=== PATIENT | female | born 1995 | race Two or more races ===

== ENCOUNTER 2017-08-20 19:14 | Emergency (ER) | payer BC ==
[2017-08-20 20:18] VITALS: TEMP 98.4; BMI 20.7
--- NOTE | 2017-08-20 20:38 | PDOC ---
History of Present Illness - General History Source: Patient Exam Limitations: No Limitations - History of Present Illness Initial Comments: 08/20/17 22:33 The patient is a 22 year old female, reports 4 weeks of , with no significant PMH who presents to the emergency department with vaginal bleeding today. The patient states the vaginal bleeding looked like the first day of her menstrual period. She states her LMP was on 07/16/17. The patient denies any history of STDs. The patient's blood work today showed a blood type of O positive and a Beta HCG of 169. The patient denies chest pain, shortness of breath, headache and dizziness. Denies fever, chills, nausea, vomit, diarrhea and constipation. Denies dysuria, frequency, urgency and hematuria. Allergies: NKA Past surgical history: None reported. Social history: No reported alcohol, cigarette or drug use. <Jessica Woodruff - Last Filed: 08/20/17 22:41> <Estefany Patterson - Last Filed: 08/21/17 03:12> - General Chief Complaint: Vaginal Bleeding Stated Complaint: VAGINAL BLEEDING/4 WKS Time Seen by Provider: 08/20/17 20:37 Past History <Jessica Woodruff - Last Filed: 08/20/17 22:41> - Past Medical History COPD: No Other medical history: Pt denies - Suicide/Smoking/Psychosocial Hx Smoking History: Never smoked Have you smoked in the past 12 months: No Information on smoking cessation initiated: No Hx Alcohol Use: No Drug/Substance Use Hx: No Substance Use Type: None <Estefany Patterson - Last Filed: 08/21/17 03:12> - Past Medical History Allergies/Adverse Reactions: Allergies Allergy/AdvReac Type Severity Reaction Status Date / Time No Known Allergies Allergy Verified 08/20/17 20:14 Review of Systems - Review of Systems Able to Perform ROS?: Yes Comments:: 08/20/17 22:25 GENERAL/CONSTITUTIONAL: No fever or chills. No weakness. HEAD, EYES, EARS, NOSE AND THROAT: No change in vision. No ear pain or discharge. No sore throat. CARDIOVASCULAR: No chest pain or shortness of breath. RESPIRATORY: No cough, wheezing, or hemoptysis. GASTROINTESTINAL: No nausea, vomiting, diarrhea or constipation. GENITOURINARY: (+) Vaginal . No dysuria, frequency, or change in urination. MUSCULOSKELETAL: No joint or muscle swelling or pain. No neck or back pain. SKIN: No rash NEUROLOGIC: No headache, vertigo, loss of consciousness, or change in strength/ sensation. ENDOCRINE: No increased thirst. No abnormal weight change. HEMATOLOGIC/LYMPHATIC: No anemia, easy bleeding, or history of blood clots. ALLERGIC/IMMUNOLOGIC: No hives or skin allergy. <Jessica Woodruff - Last Filed: 08/20/17 22:41> *Physical Exam - Vital Signs Last Vital Signs Temp Pulse Resp BP Pulse Ox 98.4 F 76 18 107/61 98 08/20/17 20:15 08/20/17 20:15 08/20/17 20:15 08/20/17 20:15 08/20/17 20:15 - Physical Exam Comments: 08/20/17 22:24 GENERAL: Awake, alert, and fully oriented, in no acute distress HEAD: No signs of trauma EYES: PERRLA, EOMI, sclera anicteric, conjunctiva clear ENT: Auricles normal inspection, hearing grossly normal, nares patent, oropharynx clear without exudates. Moist mucosa NECK: Normal ROM, supple, no lymphadenopathy, JVD, or masses LUNGS: Breath sounds equal, clear to auscultation bilaterally. No wheezes, and no crackles HEART: Regular rate and rhythm, normal S1 and S2, no murmurs, rubs or gallops ABDOMEN: Soft, nontender, normoactive bowel sounds. No guarding, no rebound. No masses : (+) Os is closed. (+) Mild active maroon blood. EXTREMITIES: Normal range of motion, no edema. No clubbing or cyanosis. No cords, erythema, or tenderness NEUROLOGICAL: Cranial nerves II through XII grossly intact. Normal speech, normal gait SKIN: Warm, Dry, normal turgor, no rashes or lesions noted. <Jessica Woodruff - Last Filed: 08/20/17 22:41> - Vital Signs Last Vital Signs Temp Pulse Resp BP Pulse Ox 98.4 F 76 18 107/61 98 08/20/17 20:15 08/20/17 20:15 08/20/17 20:15 08/20/17 20:15 02/11/18 20:15 <Estefany Patterson - Last Filed: 08/21/17 03:12> ED Treatment Course - LABORATORY CBC & Chemistry Diagram: 08/20/17 21:09 - ADDITIONAL ORDERS Additional order review: Laboratory Results 08/20/17 21:09 Beta HCG, Quant 169.7 08/20/17 21:09 RBC 4.09 MCV 87.0 MCHC 32.7 RDW 13.5 MPV 9.7 Neutrophils % 59.3 Lymphocytes % 31.9 Monocytes % 7.6 Eosinophils % 0.6 Basophils % 0.6 <Jessica Woodruff - Last Filed: 08/20/17 22:41> - LABORATORY CBC & Chemistry Diagram: 08/20/17 21:09 <Estefany Patterson - Last Filed: 08/21/17 03:12> Medical Decision Making - Medical Decision Making 08/21/17 03:10 Pt has closed os on vaginal exam. She has + slow bleeding. She has minimal cramping. SHe complains of no dysuria and no flank pain. She has O+ blood type and she has a stable CBC. Pt's bhcg is 169. SHe will follow with Dr. Morales, her ob/gyb across the street. <Estefany Patterson - Last Filed: 08/21/17 03:12> *DC/Admit/Observation/Transfer - Attestations Scribe Attestion: 08/20/17 22:41 Documentation prepared by Jessica Woodruff, acting as medical office scheduler for Estefany Patterson MD. <Jessica Woodruff - Last Filed: 08/20/17 22:41> - Discharge Dispostion Admit: No <Estefany Patterson - Last Filed: 08/21/17 03:12> Diagnosis at time of Disposition: Threatened - Discharge Dispostion Disposition: HOME Condition at time of disposition: Stable - Referrals Referrals: Magda Morales MD [Staff Physician] - - Patient Instructions Printed Discharge Instructions: DI for Threatened - Post Discharge Activity Forms/Work/School Notes: Back to Work
[2017-08-20 21:17] LABS: BASO % 0.6 % (0-2.0); EOS % 0.6 % (0-4.5); HEMATOCRIT 35.6 % (32.4-45.2); HEMOGLOBIN 11.6 GM/dL (10.7-15.3); LYMPH % 31.9 % (8-40); MCH 28.4 pg (25.7-33.7); MCHC 32.7 g/dl (32.0-36.0); MEAN PLT VOLUME 9.7 fl (7.5-11.1); MONO % 7.6 % (3.8-10.2); NEUT % 59.3 % (42.8-82.8); PLATELET COUNT 187 K/MM3 (134-434); RBC 4.09 M/mm3 (3.60-5.2); RDW 13.5 % (11.6-15.6)
[2017-08-20 22:54] VITALS: BP 107/60; PULSE 74
== END 2017-08-20 22:55 | disposition home or self-care (01) ==
LOC: JER 19:14
DX: O26.891 Other specified pregnancy related conditions, first trimester (principal); O20.0 Threatened abortion; Z3A.01 Less than 8 weeks gestation of pregnancy
CPT/HCPCS: 36415; 84702; 85025; 86850; 86900; 86901; 99283-25

== ENCOUNTER 2019-07-08 11:45 | Emergency (ER) | payer BC ==
[2019-07-08 11:53] VITALS: BMI 20.7
[2019-07-08] MEDS ORDERED: ONDANSETRON 4 MG/2 ML VIAL IVPUSH ONE (12:20)
[2019-07-08] MEDS ORDERED: SODIUM CHLORIDE 1,000 ML IV STA (12:20)
[2019-07-08] MEDS ORDERED: ONDANSETRON 4 MG/2 ML VIAL ONE (12:27)
[2019-07-08 12:49] LABS: BASO % 0.5 % (0-2.0); EOS % 1.2 % (0-4.5); HEMATOCRIT 37.9 % (32.4-45.2); HEMOGLOBIN 12.5 GM/dL (10.7-15.3); LYMPH % 28.8 % (8-40); MCH 28.8 pg (25.7-33.7); MCHC 33.1 g/dl (32.0-36.0); MEAN CELL VOLUME 87.1 fl (80-96); MEAN PLT VOLUME 9.7 fl (7.5-11.1); MONO % 6.7 % (3.8-10.2); NEUT % 62.8 % (42.8-82.8); PLATELET COUNT 207 K/MM3 (134-434); RBC 4.35 M/mm3 (3.60-5.2); RDW 13.5 % (11.6-15.6); WHITE BLOOD COUNT 6.6 K/mm3 (4.0-10.0)
[2019-07-08 13:23] LABS: ALBUMIN 4.1 g/dl (3.4-5.0); BILIRUBIN,TOTAL 0.5 mg/dL (0.2-1); BLOOD UREA NITROGEN 11.8 mg/dL (7-18); CALCIUM 9.4 mg/dL (8.5-10.1); CREATININE 0.7 mg/dL (0.55-1.3); MAGNESIUM 2.1 mg/dL (1.8-2.4); POTASSIUM 3.9 mmol/L (3.5-5.1); TOT PROT 7.2 g/dl (6.4-8.2)
[2019-07-08 13:25] LABS: PH,URINE 5.5 (5.0-8.0); URINE APPEARANCE CLOUDY; URINE BILIRUBIN NEGATIVE (NEGATIVE); URINE COLOR YELLOW; URINE GLUCOSE (UA) NEGATIVE (NEGATIVE); URINE KETONE 1+ (NEGATIVE); URINE LEUK ESTERASE NEGATIVE (NEGATIVE); URINE NITRITE NEGATIVE (NEGATIVE); URINE PROTEIN NEGATIVE (NEGATIVE)
--- NOTE | 2019-07-08 13:56 | PDOC ---
History of Present Illness - General Chief Complaint: Nausea/Vomiting Stated Complaint: 8WKS/ VOMITING Time Seen by Provider: 07/08/19 12:09 History Source: Patient Exam Limitations: No Limitations - History of Present Illness Travel History: No Initial Comments: 07/08/19 12:51 24-year-old female currently 8 weeks presents to ED with complaints of nausea , vomiting, and generalized fatigue. Patient states has been unable to tolerate solids for the past day secondary to nausea and vomiting but states is able to tolerate fluids. Patient has no abdominal pain, urinary complaints, fever or chills. Patient states similar symptoms a previous . Timing/Duration: reports: intermittent Pain Radiation: reports: no radiation Aggravating Factors: improves with: None Alleviating Factors: improves with: None Past History - Travel Traveled outside of the country in the last 30 days: No Close contact w/someone who was outside of country & ill: No - Past Medical History Allergies/Adverse Reactions: Allergies Allergy/AdvReac Type Severity Reaction Status Date / Time No Known Allergies Allergy Verified 07/08/19 11:53 Home Medications: Ambulatory Orders NK [No Known Home Medication] 07/08/19 COPD: No - Reproductive History Is Patient Now?: Yes (#): 2 - Psycho Social/Smoking Cessation Hx Smoking History: Never smoked Have you smoked in the past 12 months: No Hx Alcohol Use: No Drug/Substance Use Hx: No Substance Use Type: None Patient Lives Alone: No Lives with/in: parents Review of Systems - Review of Systems Able to Perform ROS?: Yes Constitutional: Yes: Weakness HEENTM: No: Symptoms Reported Respiratory: No: Symptoms reported ABD/GI: Yes: Nausea, Poor Appetite, Vomiting. No: Poor Fluid Intake : No: Symptoms Reported Musculoskeletal: No: Symptoms Reported Integumentary: No: Symptoms Reported Neurological: No: Symptoms reported *Physical Exam - Vital Signs Last Vital Signs Temp Pulse Resp BP Pulse Ox 97.9 F 89 18 105/79 99 07/08/19 11:50 07/08/19 11:50 07/08/19 11:50 07/08/19 11:50 07/08/19 11:50 - Physical Exam General Appearance: Yes: Nourished, Appropriately Dressed. No: Apparent Distress HEENT: positive: EOMI. negative: Pale Conjunctivae Neck: positive: Supple Respiratory/Chest: positive: Lungs Clear, Normal Breath Sounds. negative: Respiratory Distress, Accessory Muscle Use Cardiovascular: positive: Regular Rhythm, Regular Rate. negative: Murmur Gastrointestinal/Abdominal: positive: Soft. negative: Tenderness Musculoskeletal: negative: CVA Tenderness Extremity: positive: Normal Capillary Refill. negative: Pedal Edema Integumentary: positive: Normal Color, Warm, Moist Neurologic: positive: Normal Mood/Affect, Motor Strength 5/5 (ambulatory) ED Treatment Course - LABORATORY CBC & Chemistry Diagram: 07/08/19 12:30 07/08/19 12:30 - ADDITIONAL ORDERS Additional order review: Laboratory Results 07/08/19 07/08/19 12:30 12:30 Sodium 136 Potassium 3.9 Chloride 102 Carbon Dioxide 26 Anion Gap 8 BUN 11.8 Creatinine 0.7 Est GFR (CKD-EPI)AfAm 141.54 Est GFR (CKD-EPI)NonAf 122.12 Random Glucose 103 Calcium 9.4 Magnesium 2.1 Total Bilirubin 0.5 AST 14 L ALT 18 Alkaline Phosphatase 66 Total Protein 7.2 Albumin 4.1 Urine Color Yellow Urine Appearance Cloudy Urine pH 5.5 Ur Specific [place] 1.030 Urine Protein Negative Urine Glucose (UA) Negative Urine Ketones 1+ H Urine Blood Negative Urine Nitrite Negative Urine Bilirubin Negative Urine Urobilinogen 1.0 Ur Leukocyte Esterase Negative 07/08/19 12:30 RBC 4.35 MCV 87.1 MCHC 33.1 RDW 13.5 MPV 9.7 Neutrophils % 62.8 Lymphocytes % 28.8 Monocytes % 6.7 Eosinophils % 1.2 D Basophils % 0.5 - Medications Given in the ED: ED Medications Discontinued Medications Generic Name Dose Route Start Last Admin Trade Name Mattyq PRN Reason Stop Dose Admin Sodium Chloride 1,000 mls @ 1,000 mls/hr 07/08/19 12:20 07/08/19 12:41 Normal Saline - IV 07/08/19 13:19 1,000 mls/hr ASDIR STA Administration Ondansetron HCl 4 mg 07/08/19 12:20 07/08/19 12:41 Zofran Injection IVPUSH 07/08/19 12:21 4 mg ONCE ONE Administration Medical Decision Making - Medical Decision Making 07/08/19 12:59 Chief complaint: nausea vomiting generalized weakness poor solid intake patient currently 8 weeks , Similar symptoms previous . Exam: No abdominal tenderness side ER. Plan:, Urine, IV fluids and Zofran followed by p.o. challenge. 07/08/19 14:02 Laboratory Tests 07/08/19 07/08/19 07/08/19 12:30 12:30 12:30 WBC 6.6 Hgb 12.5 Hct 37.9 Absolute Neuts (auto) 4.1 Neutrophils % 62.8 Sodium 136 Potassium 3.9 Chloride 102 Carbon Dioxide 26 Anion Gap 8 BUN 11.8 Creatinine 0.7 Est GFR (CKD-EPI)AfAm 141.54 Est GFR (CKD-EPI)NonAf 122.12 Random Glucose 103 Calcium 9.4 Magnesium 2.1 Total Bilirubin 0.5 AST 14 L ALT 18 Alkaline Phosphatase 66 Urine Ketones 1+ H Urine Nitrite Negative Ur Leukocyte Esterase Negative Feeling better. Patient tolerated p.o. challenge. Patient will be discharged home with Zofran. Recommend to eat small frequent meals and follow-up with [employer]WORK [employer]CH[employer]ECT. Discharge - Discharge Information Problems reviewed: Yes Clinical Impression/Diagnosis: Hyperemesis gravidarum Condition: Improved Disposition: HOME - Follow up/Referral - Patient Discharge Instructions Patient Printed Discharge Instructions: DI for Hyperemesis Gravidarum Additional Instructions: Take Zofran as needed for nausea or vomiting. Drink plenty of fluids and eat small frequent meals throughout the day. Return to ED if symptoms worsen or otherwise follow-up with your CIVIL RIGHTS ATTORNEY. - Post Discharge Activity
[2019-07-08 14:17] VITALS: BP 91/52; PULSE 61; TEMP 98.4
== END 2019-07-08 14:19 | disposition home or self-care (01) ==
LOC: JER 11:45
PROC: 3E033GC Introduction of Other Therapeutic Substance into Peripheral Vein, Percutaneous Approach (ICD-10-PCS; principal; 2019-07-08)
DX: O26.891 Other specified pregnancy related conditions, first trimester (principal); O21.0 Mild hyperemesis gravidarum; Z3A.10 10 weeks gestation of pregnancy
CPT/HCPCS: 36415; 80053; 81003; 83735; 85025; 87077; 87086; 99284-25; J7030

== ENCOUNTER 2023-06-19 13:07 | Inpatient (IN) | payer OTHER ==
[2023-06-19] MEDS ORDERED: OXYTOCIN 20 UNITS in 0.9% NS 20 UNIT/1,000 ML INFUS.BAG IV ONE (14:29)
[2023-06-19] MEDS: LACTATED RINGERS SOLUTION 1,000 ML/1,000 ML INFUS.BAG IV SCH ×2 (14:30→17:49)
[2023-06-19] MEDS ORDERED: OXYTOCIN 10 UNITS/ML VIAL ONE (14:35)
[2023-06-19] MEDS ORDERED: LIDOCAINE HCL 1% PRESERVATIVE FREE - 30ML VIAL ONE (14:48)
[2023-06-19] MEDS: OXYTOCIN 20 UNITS in 0.9% NS 20 UNIT/1,000 ML INFUS.BAG IV SCH ×2 (14:49→17:50)
[2023-06-19] MEDS ORDERED: METHYLERGONOVINE MALEATE 0.2 MG/1 ML AMP IM PRN (15:12)
[2023-06-19] MEDS ORDERED: WITCH HAZEL 50% (TUCKS) 40 PAD/JAR PAD TP PRN (15:12)
[2023-06-19] MEDS ORDERED: BENZOCAINE 28 GM HEMORRHOIDAL OINTMENT TP PRN (15:12)
[2023-06-19] MEDS ORDERED: IBUPROFEN 600 MG TABLET (FP) PO PRN (15:12)
[2023-06-19] MEDS ORDERED: oxyCODONE HCL 5 MG TABLET PO PRN (15:12)
[2023-06-19] MEDS ORDERED: BENZOCAINE 20% 57 GM BOTTLE TP PRN (15:12)
[2023-06-19] MEDS ORDERED: BISACODYL 10 MG SUPP.RECT RC PRN (15:12)
[2023-06-19 15:31] VITALS: BMI 23.3
[2023-06-19 17:03] LABS: BASO % 0.2 % (0-2.0); HEMATOCRIT 28.9 % (32.4-45.2); HEMOGLOBIN 9.1 GM/dL (10.7-15.3); LYMPH % 6.7 % (8-40); MCH 24.7 pg (25.7-33.7); MCHC 31.6 g/dl (32.0-36.0); MEAN CELL VOLUME 78.3 fl (80-96); MEAN PLT VOLUME 9.5 fl (7.5-11.1); MONO % 3.5 % (3.8-10.2); NEUT % 89.6 % (42.8-82.8); PLATELET COUNT 178 10^3/uL (134-434); RBC 3.69 M/mm3 (3.60-5.2); RDW 15.9 % (11.6-15.6); WHITE BLOOD COUNT 9.6 K/mm3 (4.0-10.0)
[2023-06-19 17:11] LABS: INR 0.94 (0.83-1.09); PROTHROMBIN TIME (PATIENT) 10.9 SEC (9.7-13.0)
[2023-06-19 17:13] LABS: ACTIVATED PTT 25.4 SECONDS (25.2-36.5)
[2023-06-19 17:41] LABS: POTASSIUM 3.8 mmol/L (3.5-5.1)
[2023-06-19 17:44] LABS: CALCIUM 7.8 mg/dL (8.5-10.1)
[2023-06-19 17:47] LABS: CREATININE 0.7 mg/dL (0.55-1.3)
[2023-06-19 19:44] LABS: HIV INTERPRETATION NEGATIVE (NEGATIVE)
[2023-06-19] MEDS: guaiFENesin 200 MG/10 ML 10 ML UNIT-DOSE CUPS PO PRN (22:44)
[2023-06-20] MEDS: guaiFENesin 200 MG/10 ML 10 ML UNIT-DOSE CUPS PO PRN (04:47)
[2023-06-20 07:36] LABS: BASO % 0.2 % (0-2.0); EOS % 0.1 % (0-4.5); HEMATOCRIT 24.8 % (32.4-45.2); HEMOGLOBIN 7.9 GM/dL (10.7-15.3); LYMPH % 15.8 % (8-40); MCH 24.9 pg (25.7-33.7); MCHC 31.7 g/dl (32.0-36.0); MEAN CELL VOLUME 78.6 fl (80-96); MEAN PLT VOLUME 9.5 fl (7.5-11.1); MONO % 8.3 % (3.8-10.2); NEUT % 75.6 % (42.8-82.8); PLATELET COUNT 164 10^3/uL (134-434); RBC 3.16 M/mm3 (3.60-5.2); RDW 15.6 % (11.6-15.6); WHITE BLOOD COUNT 11.3 K/mm3 (4.0-10.0)
[2023-06-20] MEDS: FERROUS SO4 325 MG TABLET (FP) PO SCH (11:00)
[2023-06-20] MEDS: PRENATAL VITAMINS W/ FOLIC ACID TABLET (FP) PO SCH (11:00)
[2023-06-20] MEDS: ACETAMINOPHEN 325 MG TABLET (FP) PO PRN ×4 (11:08→23:40)
[2023-06-20] MEDS: BENZOCAINE/MENTH/CETYLPYRD CL 1 EACH LOZENGE MM PRN ×3 (14:48→23:40)
[2023-06-20] MEDS ORDERED: SENNOSIDES/DOCUSATE COMBO (SENNA PLUS) TABLET (UD) PO PRN (22:00)
[2023-06-20 22:14] VITALS: RESP 17
[2023-06-21] MEDS: ACETAMINOPHEN 325 MG TABLET (FP) PO PRN (06:09)
[2023-06-21] MEDS: BENZOCAINE/MENTH/CETYLPYRD CL 1 EACH LOZENGE MM PRN (06:10)
[2023-06-21] MEDS: PRENATAL VITAMINS W/ FOLIC ACID TABLET (FP) PO SCH (10:53)
[2023-06-21] MEDS: FERROUS SO4 325 MG TABLET (FP) PO SCH (10:53)
[2023-06-21 12:14] VITALS: BP 132/78; PULSE 50; TEMP 98.2
== END 2023-06-21 13:33 | disposition home or self-care (01) | DRG 560 ==
LOC: JDEL 13:07 → JLDR 14:30 → J3W 17:15
PROVIDERS: ADMIT Obstetrics & Gynecology; ATTEND Obstetrics & Gynecology
PROC: 10E0XZZ Delivery of Products of Conception, External Approach (ICD-10-PCS; principal; 2023-06-19)
PROC: 0HQ9XZZ Repair Perineum Skin, External Approach (ICD-10-PCS; 2023-06-19)
DX: O70.0 First degree perineal laceration during delivery (principal); Z3A.38 38 weeks gestation of pregnancy; Z37.0 Single live birth
CPT/HCPCS: 0241U-QW; 36415; 80048; 85025; 85610; 85730; 86780; 86850; 86900; 86901; 87389; 87635